=== PATIENT | female | born 1950 | race Caucasian/White ===

== ENCOUNTER 2018-09-06 08:51 | Outpatient (CLI) ==
--- NOTE | 2018-09-06 11:52 | MAMMO ---
EXAM: Bilateral digital screening mammogram (2-D and 3-D) History: Screening Comparison: Bilateral mammogram 09/04/2017 Findings: MLO and CC views of bilateral breasts demonstrate predominately fatty replaced breast paren chyma. CAD was reviewed by the radiologist. Tomosynthesis was performed. Stable benign bilateral s cattered and vascular calcifications. Stable benign lymph node within the upper-outer quadrant of th e left breast. There are no developing masses, no suspicious microcalcifications and no architectura l distortions Impression: Benign stable mammogram. Recommend followup routine screening mammography in 1 year. BIRADS 2
== END 2018-09-06 08:52 | disposition home or self-care (01) ==
LOC: RAD 08:51
PROVIDERS: ATTEND Family Medicine
DX: Z12.31 Encounter for screening mammogram for malignant neoplasm of breast (principal)

== ENCOUNTER 2018-09-08 11:21 | Outpatient (CLI) | payer OTHER ==
--- NOTE | 2018-09-09 08:09 | DI ---
EXAM: Two views of the chest. History: Cough. Comparison: Chest radiograph 11/24/2013 Findings: Heart is mildly enlarged. There is bronchial wall thickening and scattered areas of subse gmental atelectasis. No pleural fluid and no pneumothorax. No acute osseous abnormalities. Impression: 1. Bronchial wall thickening and scattered areas of subsegmental atelectasis. No consolidated pneumo brennon. 2. Mild cardiomegaly
== END 2018-09-08 11:22 | disposition home or self-care (01) ==
LOC: RAD 11:21
PROVIDERS: ATTEND Family Medicine
DX: R05 Cough (principal)